=== PATIENT | male | born 1965 | race Caucasian/White ===

== ENCOUNTER 2024-03-31 12:52 | Emergency (ER) | payer OTHER ==
[~2024-03-31] VITALS: Ht 180.3 cm; Wt 127.0 kg
[2024-03-31 12:57] VITALS: BP_SYST 175; PULSE 58; RESP 20; TEMP 99.1; O2SAT 97
[2024-03-31] MEDS: IPRATROPIUM/ALBUTEROL SULFATE 3 ML AMPUL.NEB (DUONEB) INH ONE (13:45)
[2024-03-31 14:12] VITALS: BP_SYST 161; PULSE 67; RESP 20; TEMP 99; O2SAT 96
== END 2024-03-31 14:13 | disposition home or self-care (01) ==
LOC: SED 12:52
DX: J45.901 Unspecified asthma with (acute) exacerbation (principal)
CPT/HCPCS: 71045; 94640; 99283